=== PATIENT | female | born 1955 | race Caucasian/White ===

== ENCOUNTER → 2018-05-22 | Outpatient (CLI) | payer BC | END | disposition home or self-care (01) | LOC: SURG 10:02 | PROVIDERS: ATTEND Anesthesiology Pain Medicine | DX: M54.12 Radiculopathy, cervical region (principal) | CPT/HCPCS: 99213 ==

== ENCOUNTER → 2019-11-09 | Day surgery (SDC) | payer MEDICARE, OTHER ==
[~2019-11-09] MED LIST: ACETAMINOPHEN 325 MG TABLET PO PRN; ALBUTEROL SULFATE 2.5 MG/3 ML NEBU. NEB PRN; APIX5TAB3 PO; ATROPINE 0.5 MG/5 ML DISP.SYRIN. IV PRN; CALC500T54 PO; CARV12.5 PO; CHOL200078 PO; DULA0.75 SQ; FURO-69 PO; IV RINGERS SOLUTION,LACTATED 1,000 ML IV SCH; ONDANSETRON PF 4 MG/2 ML VIAL. IV PRN; PHENOL ORAL SPRAY 177ML BOTTLE. MM PRN; PROPOFOL 40 ML IV ONE; SERT100T PO; diphenhydrAMINE 50 MG/ML VIAL IV PRN
[2019-11-09 08:20] VITALS: BP 165/92
--- NOTE | 2019-11-10 15:07 | PATHOLOGY ---
[facility] Accession Number: [id number] . 01 Material submitted: . PART A: colon - ASCENDING POLYP. Modifiers: ascending PART B: colon - SIGMOID POLYP. Modifiers: sigmoid PART C: rectum - RECTAL POLYP . 01 Clinical history: . None provided . 02 Diagnosis: A. Colon biopsy, ascending colon polyp: - Prominent mucosal fold. . B. Sigmoid colon polypectomy: - Polypoid submucosal lipoma. . C. Colorectal biopsies, rectal polyps: - Hyperplastic polyps. (JPM:[facility] 11/10/2019) [facility] 11/10/2019 1204 Local . 02 Comment: There are no adenomatous changes of evidence of malignancy. (JPM:[facility] 11/10/2019) . 02 Electronically signed: . Ronny Garcia MD, Pathologist NPI- [id number] . 01 Gross description: . A. The specimen is received in formalin, labeled "Cassidy Willcott, ascending polyp". Received is a segment of pale gamez soft tissue measuring 0.3 cm in maximum dimensions. The specimen is submitted entirely in cassette A1. . B. The specimen is received in formalin, labeled "Cassidy Willcott, sigmoid polyp". Received is a segment of light brown soft tissue measuring 2.5 x 1.8 x 1.5 cm in greatest mentions. The surgical margin is inked. Sectioning reveals pink-gamez, homogenous cut surfaces. The specimen is serially sectioned and entirely submitted in cassettes B1 through B5. . C. The specimen is received in formalin, labeled "Cassidy Willcott, rectal polyp". Received are three segments of pale gamez soft tissue ranging in size from 0.1 to 0.3 cm in maximum dimensions. The specimen is submitted entirely in cassette C1. (CAA; 11/09/2019) QAC/QAC 11/09/2019 1550 Local . 02 Pathologist provided ICD-10: D17.5, K62.1 . 02 CPT . 250971, 030752, 710345 Specimen Comment: A courtesy copy of this report has been sent to [phone], [phone] Specimen Comment: [id number] Specimen Comment: Report sent to / DR ORTEGA Performed at: [facility] [address] [facility] [address], [place] [id number] MD Raudel Goff MD Phone: [phone] Performed at: 02 [facility] [address] [place] [place], [place] [id number] MD Ronny Garcia MD Phone: [phone]
== END ==
LOC: SURG 06:05
PROVIDERS: ATTEND Emergency Medicine
DX: R19.5 Other fecal abnormalities (principal); K63.5 Polyp of colon; K57.30 Diverticulosis of large intestine without perforation or abscess without bleeding; D17.5 Benign lipomatous neoplasm of intra-abdominal organs; I48.91 Unspecified atrial fibrillation; E03.9 Hypothyroidism, unspecified; Z87.39 Personal history of other diseases of the musculoskeletal system and connective tissue; Z90.710 Acquired absence of both cervix and uterus; Z72.89 Other problems related to lifestyle
CPT/HCPCS: 45380; 45385; 88305; J2405; J2704; J7120

== ENCOUNTER → 2020-06-30 | Outpatient (CLI) | payer MEDICARE, OTHER ==
[2019-11-09 08:20] VITALS: BP 165/92
[~2020-06-30] MED LIST changes: -ACETAMINOPHEN 325 MG TABLET PO PRN; -ALBUTEROL SULFATE 2.5 MG/3 ML NEBU. NEB PRN; -ATROPINE 0.5 MG/5 ML DISP.SYRIN. IV PRN; -IV RINGERS SOLUTION,LACTATED 1,000 ML IV SCH; -ONDANSETRON PF 4 MG/2 ML VIAL. IV PRN; -PHENOL ORAL SPRAY 177ML BOTTLE. MM PRN; -PROPOFOL 40 ML IV ONE; -diphenhydrAMINE 50 MG/ML VIAL IV PRN
--- NOTE | 2020-07-07 08:46 | RAD ---
DATE: 06/30/2020 EXAM: MAMMO [place] SCREENING BILATERAL HISTORY: Screening COMPARISON: 02/11/2019, 07/02/2017 This study was interpreted with the benefit of Computerized Aided Detection (CAD). Breast Density: SCATTERED The breast parenchyma shows scattered fibroglandular densities. Breast parenchyma level B. FINDINGS: No mass, suspicious calcification, or architectural distortion in either breast. Small nodular densities in the right breast are unchanged from at least 2017. IMPRESSION: No evidence of malignancy. BI-RADS CATEGORY: 2 BENIGN FINDING(S) RECOMMENDED FOLLOW-UP: 12M 12 MONTH FOLLOW-UP PQRS compliance statement: Patient information was entered into a reminder system with a target due date for the next mammogram. Mammography is a sensitive method for finding small breast cancers, but it does not detect them all and is not a substitute for careful clinical examination. A negative mammogram does not negate a clinically suspicious finding and should not result in delay in biopsying a clinically suspicious abnormality. "Our facility is accredited by the [employer] Mammography Program."
== END ==
LOC: MAMMO 09:15
PROVIDERS: ATTEND Family Medicine
DX: Z12.31 Encounter for screening mammogram for malignant neoplasm of breast (principal); N64.89 Other specified disorders of breast
CPT/HCPCS: 77063; 77067

== ENCOUNTER → 2021-03-30 | Outpatient (CLI) | payer MEDICARE, OTHER ==
[2019-11-09 08:20] VITALS: BP 165/92
--- NOTE | 2021-03-30 09:07 | RAD ---
EXAM: Abdomen sonogram. HISTORY: Elevated liver enzyme function laboratory values. TECHNIQUE: Sonographic imaging of the abdomen was performed. COMPARISON: None. FINDINGS: The liver is upper normal in size. There is hepatic steatosis. No focal hepatic lesion is s een. The common bile duct is normal in caliber. The gallbladder wall is upper normal in thickness. Th ere is no evidence of cholecystitis or cholelithiasis. The right kidney is unremarkable. The pancreas and inferior vena cava are partially obscured due to bowel gas. IMPRESSION: 1. Hepatic steatosis and upper normal liver size. 2. No acute sonographic finding. 3. Partially obscured midline structures due to bowel gas. Electronically signed by: Elida Richardson MD (03/30/2021 9:05 AM) [id number]
== END ==
LOC: US 08:25
PROVIDERS: ATTEND Family Medicine
DX: K76.0 Fatty (change of) liver, not elsewhere classified (principal); R74.8 Abnormal levels of other serum enzymes
CPT/HCPCS: 76705

== ENCOUNTER → 2021-07-12 | Outpatient (CLI) | payer MEDICARE, OTHER ==
[2019-11-09 08:20] VITALS: BP 165/92
--- NOTE | 2021-07-12 10:33 | RAD ---
History: 66-year-old a symptomatically the patient presents for routine screening mammogram. PROCEDURE: 3-D tomosynthesis was performed of the breasts bilaterally. 2-D C-view craniocaudal and mediolateral oblique digital mammograms were also generated. The images were also evaluated with [employer] puter-aided detection and the CAD results were analyzed. Previous: Bilateral screening mammogram from 02/04/2014. FINDINGS: Density level B: There are scattered fibroglandular densities. There are no suspicious masses, suspic ious microcalcifications or areas of architectural distortion.Benign stable nodules are redemonstrate d in the right breast. IMPRESSION: Benign mammogram. Patient information was entered into the [employer] reminder system with a target due date for the next screening mammogram . Routine annual screening mammogram in one year ad vised. BI-RADS Category 2: Benign. A mammogram does not have 100% sensitivity and therefore a negative imaging study should not delay fu rther work up of a suspicious abnormality. PQRS compliance statement: Patient information was entered into the [employer] reminder system with a ta rget due date for the next screening mammogram . Routine annual screening mammogram in one year advis ed. "Our facility is accredited by the [employer] Mammography Program." Electronically signed by: Genoveva Thomason MD (07/12/2021 10:31 AM) [id number]
== END ==
LOC: MAMMO 09:48
PROVIDERS: ATTEND Family Medicine
DX: Z12.31 Encounter for screening mammogram for malignant neoplasm of breast (principal)
CPT/HCPCS: 77063; 77067

== ENCOUNTER 2022-01-09 10:55 | Emergency (ER) | payer MEDICARE, OTHER ==
[~2022-01-09] VITALS: Ht 170.2 cm; Wt 121.6 kg
--- NOTE | 2022-01-09 12:13 | PHYS DOC ---
Past History Past Surgical History: Hysterectomy, Other Additional Past Surgical Histo: R arm, back surgery, bilat breast lumpectomy Alcohol Use: None General Adult EDM: Chief Complaint: MECHANICAL FALL HPI: HPI: 67-year-old female presents with right arm pain. The patient tripped over a rug at home and fell onto her right arm. She has had a complex fracture with internal fixation of this elbow in the past. She is concerned for refracture. She denies any other injuries at this time. Review of Systems: Review of Systems: Constitutional: Denies fever or chills Eyes: Denies change in visual acuity HENT: Denies nasal congestion or sore throat Respiratory: Denies cough or shortness of breath Cardiovascular: Denies chest pain or edema GI: Denies abdominal pain, nausea, vomiting, bloody stools or diarrhea : Denies dysuria Musculoskeletal: Right elbow pain Integument: Denies rash Neurologic: Denies headache, focal weakness or sensory changes Endocrine: Denies polyuria or polydipsia Lymphatic: Denies swollen glands Psychiatric: Denies depression or anxiety Current Medications: Current Meds: Current Medications Medications (Trade) Dose Ordered Sig/Belén Start Time Stop Time Status Last Admin Dose Admin Morphine Sulfate (Morphine 4mg Syringe) 4 mg 1X ONCE 01/09/22 12:15 01/09/22 12:16 UNV Ondansetron HCl (Zofran) 4 mg 1X ONCE 01/09/22 12:15 01/09/22 12:16 UNV Allergies: Allergies: Allergies Coded Allergies Type Severity Reaction Last Updated Verified latex Allergy Unknown 01/09/22 Yes Physical Exam: PE: Constitutional: Well developed, well nourished, morbidly obese, no acute distress, non-toxic appearance. [] HENT: Normocephalic, atraumatic, bilateral external ears normal, oropharynx moist, no oral exudates, nose normal. [] Eyes: PERRLA, EOMI, conjunctiva normal, no discharge. [] Neck: Normal range of motion, no tenderness, supple, no stridor. [] Cardiovascular: Heart rate regular rhythm, no murmur [] Lungs & Thorax: Bilateral breath sounds clear to auscultation [] Abdomen: Bowel sounds normal, soft, no tenderness, no masses, no pulsatile masses. [] Skin: Warm, dry, no erythema, no rash. [] Back: No tenderness, no CVA tenderness. [] Extremities: Tenderness and swelling of the right elbow region, no open fracture. [] Neurologic: Alert and oriented X 3, normal motor function, normal sensory function, no focal deficits noted. [] Psychologic: Affect normal, judgement normal, mood normal. [] Current Patient Data: Vital Signs: Vital Signs Date Time Temp Pulse Resp B/P (MAP) Pulse Ox O2 Delivery O2 Flow Rate FiO2 01/09/22 11:12 98.3 50 20 95/45 (62) 99 Room Air EKG: EKG: [] Radiology/Procedures: Radiology/Procedures: [] Impressions: Exam: XR FOREARM_RIGHT 2 VIEWS, XR ELBOW COMPLETE_RIGHT 3+ VIEWS History: Fall. History of fracture in 2017 Comparison: None. Findings: There are postsurgical changes from plate and screw fixation of the olecranon and medial distal humerus. There is an acute fracture of proximal ulna adjacent to the distal aspect of the olecranon fixation plate with approximately 5 mm displacement. Acute fracture of the radial head with minimal step-off at the articular surface. Adjacent radial chronic osteophytes at the radial head. Irregular dysmorphic post fracture and fixation appearance of the distal humerus without acute osseous abnormality identified. Soft tissue swelling about the elbow. Impression: 1. Acute mildly displaced fracture of the proximal ulna adjacent to the distal aspect of the olecranon fixation plate. 2. Fracture of the radial head with minimal displacement at the articular surface. Electronically signed by: Terry Berry MD (01/09/2022 12:36 PM) [facility] DICTATED AND SIGNED BY: TERRY BERRY MD DATE: 01/09/22 123 CC: EDDI MORELOS DO; BARBI ORTEGA ~ Heart Score: C/O Chest Pain: N/A Risk Factors: Risk Factors: DM, Current or recent (<one month) smoker, HTN, HLP, family history of CAD, obesity. Risk Scores: Score 0 - 3: 2.5% MACE over next 6 weeks - Discharge Home Score 4 - 6: 20.3% MACE over next 6 weeks - Admit for Clinical Observation Score 7 - 10: 72.7% MACE over next 6 weeks - Early Invasive Strategies Course & Med Decision Making: Course & Med Decision Making Pertinent Labs and Imaging studies reviewed. (See chart for details) Patient does have a fracture of the ulna and the radial head. See official read for more details. We will place patient in a sling. She will follow-up with orthopedics. I will give her prescription for [place] 5/325. She is stable for discharge at this time. [] Alisa Disclaimer: Alisa Disclaimer: This electronic medical record was generated, in whole or in part, using a voice recognition dictation system. Departure Departure: Impression: Primary Impression: Fracture, radius and ulna, proximal Disposition: HOME / SELF CARE / HOMELESS Condition: STABLE Referrals: BARBI ORTEGA (PCP) Patient Instructions: Elbow Fracture, Simple Scripts Hydrocodone/Acetaminophen (Hydrocodone-Acetamin 5-325 mg) 1 Each Tablet 1-2 EACH PO Q6HRS PRN for PAIN, #20 TAB Prov: EDDI MORELOS DO 01/09/22 EDDI MORELOS DO Jan 09, 2022 12:13
[2022-01-09] MEDS ORDERED: MORPHINE SULFATE 4 MG/ML DISP.SYRIN. IV ONE (12:15)
[2022-01-09] MEDS ORDERED: ONDANSETRON PF 4 MG/2 ML VIAL. IVP ONE (12:15)
--- NOTE | 2022-01-09 12:39 | RAD ---
Exam: XR FOREARM_RIGHT 2 VIEWS, XR ELBOW COMPLETE_RIGHT 3+ VIEWS History: Fall. History of fracture in 2017 Comparison: None. Findings: There are postsurgical changes from plate and screw fixation of the olecranon and medial distal humer us. There is an acute fracture of proximal ulna adjacent to the distal aspect of the olecranon fixati on plate with approximately 5 mm displacement. Acute fracture of the radial head with minimal step-of f at the articular surface. Adjacent radial chronic osteophytes at the radial head. Irregular dysmorp hic post fracture and fixation appearance of the distal humerus without acute osseous abnormality shireen ntified. Soft tissue swelling about the elbow. Impression: 1. Acute mildly displaced fracture of the proximal ulna adjacent to the distal aspect of the olecran on fixation plate. 2. Fracture of the radial head with minimal displacement at the articular surface. Electronically signed by: Terry Berry MD (01/09/2022 12:36 PM) [facility]
[2022-01-09 13:20] LABS: BASO # 0.1 x10^3/uL (0.0-0.2); BASO % 1 % (0-3); EOS # 0.1 x10^3/uL (0.0-0.7); EOS % 1 % (0-3); HEMOGLOBIN 15.3 g/dL (12.0-15.5); LYMPH # 1.9 x10^3/uL (1.0-4.8); LYMPH % 14 % (24-48); MEAN CORPUSCULAR HEMOGLOBIN 30 pg (25-35); MEAN CORPUSCULAR HGB CONC 33 g/dL (31-37); MEAN CORPUSCULAR VOLUME 92 fL (79-100); MONO % 7 % (0-9); NEUT # 10.6 x10^3uL (1.8-7.7); NEUT % 77 % (31-73); PLATELET COUNT 205 x10^3/uL (140-400); RED BLOOD COUNT 5.11 x10^6/uL (3.50-5.40); RED CELL DISTRIBUTION WIDTH 13.6 % (11.5-14.5); WHITE BLOOD COUNT 13.7 x10^3/uL (4.0-11.0)
[2022-01-09 13:29] LABS: CALCIUM 9.5 mg/dL (8.5-10.1); CREATININE 0.7 mg/dL (0.6-1.0); GFR 83.2
[2022-01-09] MEDS ORDERED: HYDR-2759 PO (13:34)
[2022-01-09 13:35] LABS: ALBUMIN 3.6 g/dL (3.4-5.0); ALBUMIN/GLOBULIN RATIO 1.2 (1.0-1.7); TOTAL BILIRUBIN 0.4 mg/dL (0.2-1.0); TOTAL PROTEIN 6.6 g/dL (6.4-8.2)
[2022-01-09 13:38] VITALS: BP 110/61
[2022-01-09] MEDS ORDERED: HYDROcodone/APAP 5/325MG 1 TAB TABLET PO ONE (13:45)
== END 2022-01-09 14:15 | disposition home or self-care (01) ==
LOC: ER 10:55
DX: S52.121A Displaced fracture of head of right radius, initial encounter for closed fracture (principal); S52.001A Unspecified fracture of upper end of right ulna, initial encounter for closed fracture; Z91.040 Latex allergy status; W18.09XA Striking against other object with subsequent fall, initial encounter; Y93.89 Activity, other specified; Y92.89 Other specified places as the place of occurrence of the external cause; Y99.8 Other external cause status
CPT/HCPCS: 29125; 36415; 73080; 73090; 80053; 85025; 96374; 96375; 99284; J2270; J2405